=== PATIENT | male | born 1965 | race African-American/Black ===

== ENCOUNTER 2019-11-16 23:58 | Emergency (ER) | payer SELFPAY ==
[~2019-11-16] VITALS: Ht 170.2 cm; Wt 59.1 kg
[2019-11-17 00:55] VITALS: BP 136/91
[2019-11-17] MEDS ORDERED: ACETAMINOPHEN 325 MG TABLET. PO ONE (01:00)
--- NOTE | 2019-11-17 01:24 | RAD ---
INDICATION: Reason: knee pain / Spl. Instructions: / History: COMPARISON: None. IMPRESSION: Left knee: 2 views obtained. Degenerative changes the left knee with osteophyte formation. Severe calcific atherosclerosis. Small joint effusion and edema of Hoffa's fat pad. No evidence of dislocation. A definite acute fracture line is not seen. Electronically signed by: Geraldo Hoyos MD (11/17/2019 1:22 AM) [id number]
--- NOTE | 2019-11-17 01:58 | PHYS DOC ---
Past Medical History Past Medical History: No Pertinent History Past Surgical History: No Surgical History Smoking Status: Current Every Day Smoker Alcohol Use: Heavy Drug Use: None General Adult EDM: Chief Complaint: LOWER EXT PAIN HPI: HPI: 54-year-old thin, AA male who denies any significant past medical history presents to the ED from home with complaints of left knee pain. Patient significantly intoxicated in the ED-admits to drinking alcohol. Is demanding pain medications stating " I could not get off the floor," although patient denies any falls or trauma to the knee. Does not believe his intoxicated has inpaired his inability to stand. Review of systems: Denies associated fever, chills, cough, dyspnea, nausea, vomiting, chest pain or pressure, hemoptysis, dyspnea, neck pain, headache, neurologic deficits, back pain, saddle anesthesia, urinary or bowel retention or incontinence. Review of Systems: Review of Systems: Constitutional: Denies fever or chills. [] Eyes: Denies change in visual acuity. [] HENT: Denies nasal congestion or sore throat. [] Respiratory: Denies cough or shortness of breath. [] Cardiovascular: Denies chest pain or edema. [] GI: Denies abdominal pain, nausea, vomiting, bloody stools or diarrhea. [] : Denies dysuria. [] Musculoskeletal: Denies back pain or joint pain. [] Integument: Denies rash. [] Neurologic: Denies headache, focal weakness or sensory changes. [] Endocrine: Denies polyuria or polydipsia. [] Lymphatic: Denies swollen glands. [] Psychiatric: Denies depression or anxiety. [] Heart Score: Risk Factors: Risk Factors: DM, Current or recent (<one month) smoker, HTN, HLP, family history of CAD, obesity. Risk Scores: Score 0 - 3: 2.5% MACE over next 6 weeks - Discharge Home Score 4 - 6: 20.3% MACE over next 6 weeks - Admit for Clinical Observation Score 7 - 10: 72.7% MACE over next 6 weeks - Early Invasive Strategies Current Medications: Current Medications Medications (Trade) Dose Ordered Sig/Deedee Start Time Stop Time Status Last Admin Dose Admin Acetaminophen (Tylenol) 650 mg 1X ONCE 11/17/19 01:00 11/17/19 01:01 DC 11/17/19 01:06 650 MG Allergies: Allergies: Allergies Coded Allergies Type Severity Reaction Last Updated Verified No Known Drug Allergies 02/10/19 No Physical Exam: PE: Constitutional: Well developed, well nourished, no acute distress, non-toxic appearance, +AOB with ataxic movements HENT: Normocephalic, atraumatic, bilateral external ears normal, oropharynx moist, no oral exudates, nose normal. [] Eyes: PERRLA, EOMI, conjunctiva normal, no discharge. [] Neck: Normal range of motion, no tenderness, supple, no stridor. [] Cardiovascular:Heart rate regular rhythm, no murmur [] Lungs & Thorax: Bilateral breath sounds clear to auscultation [] Abdomen: Bowel sounds normal, soft, no tenderness, no masses, no pulsatile masses. [] Skin: Warm, dry, no erythema, no rash. [] Back: No tenderness, no CVA tenderness. [] Extremities: No tenderness, no cyanosis, no clubbing, ROM intact, no edema, medial left knee pain - w/from Neurologic: Alert and oriented X 3, normal motor function, normal sensory function, no focal deficits noted. [] Psychologic: Affect normal, judgement normal, mood normal. [] Current Patient Data: Vital Signs: Vital Signs Date Time Temp Pulse Resp B/P (MAP) Pulse Ox O2 Delivery O2 Flow Rate FiO2 11/17/19 00:55 98.4 81 22 136/91 (106) 96 Room Air 98.4 EKG: EKG: [] Radiology/Procedures: Radiology/Procedures: IMAGING REPORT Signed PATIENT: BARBARA KERR ACCOUNT: [id number] : 1965 LOCATION: ER AGE: 54 SEX: M EXAM STATUS: REG ER ORD. PHYSICIAN: MILAGROS VIVAS DO REASON: knee pain PROCEDURE: KNEE LEFT 2V INDICATION: Reason: knee pain / Spl. Instructions: / History: COMPARISON: None. IMPRESSION: Left knee: 2 views obtained. Degenerative changes the left knee with osteophyte formation. Severe calcific atherosclerosis. Small joint effusion and edema of Hoffa's fat pad. No evidence of dislocation. A definite acute fracture line is not seen. Electronically signed by: Cholo Vergara MD (11/17/2019 1:22 AM) [id number] DICTATED and SIGNED BY: CHOLO VERGARA MD DATE: 11/17/19 012 Impression: Left knee pain in the setting of alcohol intoxication. Pt observed in ed for prolonged time. Pt repeatingly asking for pain medications (other than apap/motrin). Offered haldol/ketamine, pt declined. Pt now in wheelchair, s winging both legs, in no distress or active knee pain. Sister in ed to pick pt up. Offered splint/crutches (pt declines). Recommended pmd/ortho followup. Strict return precautiona given for pain out of proportion/compartment syndrome or neuro deficits. All of pts' questions were answered and he was stable at time of discharge. Course & Med Decision Making: Course & Med Decision Making Pertinent Labs and Imaging studies reviewed. (See chart for details) [] Dragon Disclaimer: Dragon Disclaimer: This electronic medical record was generated, in whole or in part, using a voice recognition dictation system. Departure Departure Impression: Primary Impression: Alcohol intoxication Additional Impressions: Left knee pain Knee effusion, left Disposition: 01 HOME, SELF-CARE Condition: STABLE Referrals: NO PCP (PCP) CATE CROWE MD Patient Instructions: Alcohol Intoxication, Combined Knee Ligament Sprain- SportsMed Justicifation of Admission Dx: Justifications for Admission: Justification of Admission Dx: N/A MILAGROS VIVAS DO Nov 17, 2019 01:58
== END 2019-11-17 02:17 | disposition home or self-care (01) ==
LOC: ER 23:58
DX: M25.462 Effusion, left knee (principal); M25.562 Pain in left knee; F17.200 Nicotine dependence, unspecified, uncomplicated; Y90.9 Presence of alcohol in blood, level not specified; F10.229 Alcohol dependence with intoxication, unspecified
CPT/HCPCS: 73560; 99284